=== PATIENT | male | born 1995 | race Two or more races ===

== ENCOUNTER 2017-09-12 14:37 | Emergency (ER) | payer OTHER ==
[~2017-09-12] VITALS: Ht 165.1 cm; Wt 92.1 kg
[2017-09-12 14:39] VITALS: BP 133/63
[2017-09-12] MEDS ORDERED: LIDOCAINE HCL/PF 1% 30 ML SDV ONE (15:00)
== END 2017-09-12 15:44 | disposition home or self-care (01) ==
LOC: ER 14:39
DX: S61.411A Laceration without foreign body of right hand, initial encounter (principal); W45.8XXA Other foreign body or object entering through skin, initial encounter; Y93.89 Activity, other specified; Y92.89 Other specified places as the place of occurrence of the external cause; Y99.8 Other external cause status
CPT/HCPCS: 12002; 99283; A4606; A6402; A6403; J3490; Z7610

== ENCOUNTER 2017-09-15 12:07 | Emergency (ER) | payer OTHER ==
[~2017-09-15] VITALS: Ht 167.6 cm; Wt 92.1 kg
[2017-09-15 12:07] VITALS: BP 135/80
--- NOTE | 2017-09-15 12:41 | NUR ---
WOUND CARE PROVIDED. D/C IN STABLE CONDITION.
== END 2017-09-15 12:43 | disposition home or self-care (01) ==
LOC: ER 12:09
DX: S61.411D Laceration without foreign body of right hand, subsequent encounter (principal)
CPT/HCPCS: A4606; Z7502; Z7610